=== PATIENT | female | born 1965 | race Hispanic/Latino ===

== ENCOUNTER 2018-08-02 18:52 | Inpatient (IN) | payer MEDICAID ==
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
[2018-08-02 20:38] LABS: BASO % 0.4 % (0.0-2.0); EOS % 0.1 % (0.0-4.0); HEMOGLOBIN 12.7 g/dL (11.0-16.0); LYMPH # 1.2 K/uL (1.0-4.3); LYMPH % 13.3 % (20.0-40.0); MEAN CELL VOLUME 78.7 fL (81.0-99.0); MEAN CORPUSCULAR HEMOGLOBIN 25.4 pg (27.0-31.0); MEAN CORPUSCULAR HGB CONC 32.3 g/dL (33.0-37.0); MEAN PLATELET VOLUME 8.9 fL (7.2-11.7); MONO # 1.1 K/uL (0.0-0.8); MONO % 12.4 % (0.0-10.0); NEUT # 6.4 K/uL (1.8-7.0); NEUT % 73.8 % (50.0-75.0); NRBC % 0.1 % (0.0-2.0); RBC 4.97 Mil/uL (3.80-5.20); RED CELL DISTRIBUTION WIDTH 13.9 % (11.5-14.5); WHITE BLOOD COUNT 8.7 K/uL (4.8-10.8)
[2018-08-02 20:57] LABS: ALB/GLOB RATIO 1.4 (1.0-2.1); ALBUMIN 4.4 g/dL (3.5-5.0); ALT/SGPT 43 U/L (9-52); AST/SGOT 48 U/L (14-36); BLOOD UREA NITROGEN 13 mg/dL (7-17); CALCIUM 9.4 mg/dl (8.6-10.4); GFR NON-AFRICAN AMERICAN > 60
[2018-08-02 22:56] LABS: SQUAMOUS EPITHIAL 35 /hpf (0-5); URINE BILIRUBIN NEGATIVE (NEGATIVE); URINE BLOOD 1+ (NEGATIVE); URINE CLARITY Hazy (Clear); URINE COLOR Yellow (YELLOW); URINE GLUCOSE (UA) NORMAL (Normal); URINE HYALINE CAST 0-2 /lpf (0-2); URINE LEUKOCYTE ESTERASE 3+ Leu/uL (Negative); URINE PROTEIN 2+ mg/dL (NEGATIVE); URINE UROBILINOGEN NORMAL mg/dL (0.2-1.0)
[2018-08-02 23:36] LABS: BARBITURATES, UR NEGATIVE (NEGATIVE); BENZODIAZEPINES, UR NEGATIVE (NEGATIVE); OPIATES, UR NEGATIVE (NEGATIVE); PHENCYCLIDINE, UR NEGATIVE (NEGATIVE)
--- NOTE | 2018-08-03 00:56 | PCM.BM ---
<Melisa Preston - Last Filed: 08/03/18 00:54> Treatment Plan Problems - Problems identified on initial assessmt Bipolar Date Initiated: 08/03/18 Time Initiated: 00:56 Assessment reference: NA Status: Active Anxiety Date Initiated: 08/03/18 Time Initiated: 01:06 Assessment reference: NA Status: Active - Milieu Protocol Maintain good personal hygiene: daily Encourage regular showers, daily Remind patient to perform daily oral care, daily Assist patient to perform ADL's Maintain personal safety: every shift Educate patient to report safety concerns to staff, every shift Monitor environment for contraband/sharps Medication safety: Monitor for expected outcome, potential side effects: every shift, Assess barriers to learning: every shift, Assess readiness for medication education: every shift <Eliz Michaud - Last Filed: 08/04/18 14:38> Family Contact Family involvement: Family/SO is involved Family contact: Family has been contacted by patient - Goals for Treatment Patient goals for treatment: "I do not need psychiatric treatment." Discharge/Continuing Care - Education Needs Education Needs: Patient Medication, Patient Diagnosis/Disease Process - Discharge Discharge Criteria: Free of agitation, Normal sleep pattern, Ability to care for self, Reduction of target symptoms Discharge to:: Home, With Family - Treatment Team Participation Discussed with Family/SO: No Was Patient/Family/SO present at Treatment Team Meeting: Yes
[2018-08-03] MEDS ORDERED: Pneumococcal 23-Valent Vaccine IM ONE (01:30)
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
[2018-08-04] MEDS ORDERED: Influenza Vaccine 60 MCG/0.5 ML SYR (3 yr & up) IM ONE (01:27)
--- NOTE | 2018-08-04 20:02 | PCM.PYCHPN ---
Psychiatric Progress Note - Psychiatric Progress Note Patient seen today, length of contact: 15 minutes Patient Chief Complaint: I have no problem, my father has dementia and he needs treatment. Problems Identified/Issues Discussed: Patient seen, chart reviewed, case discussed with the staff. Issues related to illness and treatment were discussed with the patient and staff. Reported compliant with treatment with no adverse affects. Tolerating treatment very well. Patient reported feeling better. Staff also reported that patient was less hyper. Calm and partially cooperative. Patient was still grandiose, demanding nurse and the social services director should be p resent as a witness during her evaluation. Her speech was less pressured. We will increase the dose of lithium to 300 mg 3 times a day. Awake, alert and oriented 3. No psychomotor activity, good eye contact, memory intact. Aftercare discussed with the patient. Denied any delusions, auditory or visual hallucinations, suicidal ideations or homicidal ideations at the time of evaluation. Medical Problems: None reported Diagnostic Results: Reviewed DSM 5 Symptoms Update: Some improvement for treatment, patient needs more time for stabilization. Medication Change: Yes (Dose of lithium increased to 300 mg 3 times a day) Medical Record Reviewed: Yes Mental Status Examination - Cognitive Function Orientation: Person, Place, Time Memory: Intact Attention: WNL Concentration: WNL Association: Loose Fund of Knowledge: WNL Decription of patient's judgement and insights: Poor - Mood Mood: Euphoric - Affect Affect: Other (Somewhat manic) - Speech Speech: Pressured (Less than before) - Formal Thought Process Formal Thought Process: Delusions, Loosening of associations, Flight of ideas - Suicidal Ideation Suicidal Ideation: No - Homicidal Ideation Homicidal Ideation: No Goal/Treatment Plan - Goal/Treatment Plan Need for Continued Stay: Remain at risks for inpatient hospitalization, Discharge may exacerbated symptoms, Severe functional impairment Progress Toward Problem(s) and Goals/Treatment Plan: Patient/staff/family education. Supportive therapy. We'll increase the dose of lithium to 300 mg 3 times a day. Continue rest of the treatment as before. Estimated Date of D/C: 08/13/18 - Smoking Cessation Smoking Cessation Initiated: No Reason for not providing: Patient does not smoke cigarettes
[2018-08-05] MEDS ORDERED: Influenza Vaccine 60 MCG/0.5 ML SYR (3 yr & up) IM ONE ×2 (10:00→10:45)
--- NOTE | 2018-08-05 17:57 | PCM.PYCHPN ---
Psychiatric Progress Note - Psychiatric Progress Note Patient seen today, length of contact: 15 minutes Patient Chief Complaint: I have no problem, my father has dementia and he needs treatment. Problems Identified/Issues Discussed: Patient seen, chart reviewed, case discussed with the staff. Issues related to illness and treatment were discussed with the patient and staff. Reported compliant with treatment with no adverse affects. Tolerating treatment very well. Patient reported feeling better. Staff also reported that patient was less hyper. Calm and partially cooperative. Patient was still grandiose, demanding nurse and the family welfare social work professor should be p resent as a witness during her evaluation. Her speech was less pressured. We will increase the dose of lithium to 300 mg 3 times a day. Awake, alert and oriented 3. No psychomotor activity, good eye contact, memory intact. Aftercare discussed with the patient. Denied any delusions, auditory or visual hallucinations, suicidal ideations or homicidal ideations at the time of evaluation. Medical Problems: None reported Diagnostic Results: Reviewed DSM 5 Symptoms Update: Some improvement with treatment Medication Change: Yes (Dose of lithium increased to 300 mg 3 times a day) Medical Record Reviewed: Yes Mental Status Examination - Cognitive Function Orientation: Person, Place, Time Memory: Intact Attention: WNL Concentration: WNL Association: Loose Fund of Knowledge: WNL Decription of patient's judgement and insights: POOR - Mood Mood: Euphoric - Affect Affect: Other (Manic) - Speech Speech: Pressured (Less than before) - Formal Thought Process Formal Thought Process: Delusions, Loosening of associations, Flight of ideas - Suicidal Ideation Suicidal Ideation: No - Homicidal Ideation Homicidal Ideation: No Goal/Treatment Plan - Goal/Treatment Plan Need for Continued Stay: Remain at risks for inpatient hospitalization, Discharge may exacerbated symptoms, Severe functional impairment Progress Toward Problem(s) and Goals/Treatment Plan: Patient/staff/family education. Supportive therapy. We will increase the dose of lithium to 300 mg 3 times a day. Continue rest of the treatment as before. Estimated Date of D/C: 08/13/18 - Smoking Cessation Smoking Cessation Initiated: No Reason for not providing: Patient doesn't smoke cigarettes.
--- NOTE | 2018-08-06 19:12 | PCM.PYCHPN ---
Psychiatric Progress Note - Psychiatric Progress Note Patient seen today, length of contact: 15 minutes Patient Chief Complaint: I have no problem, my father has dementia and he needs treatment. Problems Identified/Issues Discussed: Patient seen, chart reviewed, case discussed with the staff. Issues related to illness and treatment were discussed with the patient and staff. Reported compliant with treatment with no adverse affects. Tolerating treatment very well. Patient reported feeling better. Staff also reported that patient was less hyper. Calm and partially cooperative. Patient was still grandiose, demanding nurse and the social welfare clerk should be p resent as a witness during her evaluation. Her speech was less pressured. We will increase the dose of risperdal to 2mg BID. Awake, alert and oriented 3. No psychomotor activity, good eye contact, memory intact. Aftercare discussed with the patient. Denied any delusions, auditory or visual hallucinations, suicidal ideations or homicidal ideations at the time of evaluation. Medical Problems: None reported Diagnostic Results: Reviewed DSM 5 Symptoms Update: Some improvement with treatment. Medication Change: Yes (Dose of Risperdal increased to 2 mg twice a day) Medical Record Reviewed: Yes Mental Status Examination - Cognitive Function Orientation: Person, Place, Time Memory: Intact Attention: WNL Concentration: WNL Association: Loose Fund of Knowledge: WNL Decription of patient's judgement and insights: POOR - Mood Mood: Euphoric - Affect Affect: Other (Manic) - Speech Speech: Pressured (Less than before) - Formal Thought Process Formal Thought Process: Delusions, Loosening of associations, Flight of ideas - Suicidal Ideation Suicidal Ideation: No - Homicidal Ideation Homicidal Ideation: No Goal/Treatment Plan - Goal/Treatment Plan Need for Continued Stay: Remain at risks for inpatient hospitalization, Discharge may exacerbated symptoms, Severe functional impairment Progress Toward Problem(s) and Goals/Treatment Plan: Patient/staff/family education. Supportive therapy. Will increase the dose of Risperdal to 2 mg twice a day. We will also start Cogentin 1 mg twice daily. Continue rest of the treatment as before. Estimated Date of D/C: 08/13/18 - Smoking Cessation Smoking Cessation Initiated: No
[2018-08-08] MEDS ORDERED: Influenza Vaccine 60 MCG/0.5 ML SYR (3 yr & up) IM ONE (10:00)
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
[2018-08-09] MEDS ORDERED: Pneumococcal 23-Valent Vaccine IM ONE ×2 (11:00→11:42)
--- NOTE | 2018-08-09 13:38 | RAD ---
HISTORY: Involuntary commitment COMPARISON: No prior. TECHNIQUE: Chest PA and lateral FINDINGS: LINES AND TUBES: None. LUNG AND PLEURA: The lungs are well inflated and clear. No pleural effusion or pneumothorax. HEART AND MEDIASTINUM: The heart is not enlarged. The hilar and mediastinal contours are within normal limits. SKELETAL STRUCTURES: The bony structures are within normal limits for the patient's age. VISUALIZED UPPER ABDOMEN: Normal. OTHER FINDINGS: None. IMPRESSION: No active pulmonary disease.
--- NOTE | 2018-08-09 22:43 | PCM.PYCHPN ---
Psychiatric Progress Note - Psychiatric Progress Note Patient seen today, length of contact: 15 minutes Patient Chief Complaint: I am feeling jackeline Problems Identified/Issues Discussed: Patient seen and evaluated, chart reviewed and discussed with the nurse. She still reports irritability and agitation. Pt remained disorganized and internally preoccupied. She remained isolated and withdrawn, and confined to her room. Patient is compliant with medications and denies any side effects. Symptoms are improving but pt needs more time to stabilize. Support and psychoeducation given. Medication Change: Yes (Dose of Risperdal increased to 2 mg twice a day) Medical Record Reviewed: Yes Mental Status Examination - Cognitive Function Orientation: Person, Place, Time Memory: Intact Attention: WNL Concentration: WNL Association: Loose Fund of Knowledge: WNL - Mood Mood: Euphoric - Affect Affect: Other (Manic) - Speech Speech: Pressured (Less than before) - Formal Thought Process Formal Thought Process: Delusions, Loosening of associations, Flight of ideas - Suicidal Ideation Suicidal Ideation: No - Homicidal Ideation Homicidal Ideation: No Goal/Treatment Plan - Goal/Treatment Plan Need for Continued Stay: Remain at risks for inpatient hospitalization, Discharge may exacerbated symptoms, Severe functional impairment Progress Toward Problem(s) and Goals/Treatment Plan: Bipolar 1 disorder manic severe with psychotic features -CBT -Psychotherapy -Supportive therapy, group therapy, individual therapy -Atarax 25 mg PO Q6 prn -[place] 300 mg PO TID -Risperdal 2 mg PO BID -Cogentin 1 mg PO BID -Trazodone 50 mg PO QHS prn Estimated Date of D/C: 08/13/18 - Smoking Cessation Smoking Cessation Initiated: No
[2018-08-10 06:09] VITALS: BP 100/58; PULSE 61; RESP 16; TEMP 96.4; O2SAT 99
--- NOTE | 2018-08-11 11:55 | CARD ---
APPROVED REPORT Date of service: 08/09/2018 EKG Measurement Heart [id number] <Conclusion> Normal sinus rhythm Possible Left atrial enlargement Borderline ECG incomplete [id number]
--- NOTE | 2018-08-26 21:30 | PCM.PYCHPN ---
Psychiatric Progress Note - Psychiatric Progress Note Patient seen today, length of contact: 15 minutes Patient Chief Complaint: I am feeling jackeline Problems Identified/Issues Discussed: Patient seen and evaluated, chart reviewed and discussed with the nurse. She still reports irritability and agitation. Pt remained disorganized and internally preoccupied. She remained isolated and withdrawn, and confined to her room. Patient is compliant with medications and denies any side effects. Symptoms are improving but pt needs more time to stabilize. Support and psychoeducation given. Medication Change: Yes (Dose of Risperdal increased to 2 mg twice a day) Medical Record Reviewed: Yes Mental Status Examination - Cognitive Function Orientation: Person, Place, Time Memory: Intact Attention: WNL Concentration: WNL Association: Loose Fund of Knowledge: WNL - Mood Mood: Euphoric - Affect Affect: Other (Manic) - Speech Speech: Pressured (Less than before) - Formal Thought Process Formal Thought Process: Delusions, Loosening of associations, Flight of ideas - Suicidal Ideation Suicidal Ideation: No - Homicidal Ideation Homicidal Ideation: No Goal/Treatment Plan - Goal/Treatment Plan Need for Continued Stay: Remain at risks for inpatient hospitalization, Discharge may exacerbated symptoms, Severe functional impairment Progress Toward Problem(s) and Goals/Treatment Plan: Bipolar 1 disorder manic severe with psychotic features -CBT -Psychotherapy -Supportive therapy, group therapy, individual therapy -Atarax 25 mg PO Q6 prn -[place] 300 mg PO TID -Risperdal 2 mg PO BID -Cogentin 1 mg PO BID -Trazodone 50 mg PO QHS prn Estimated Date of D/C: 08/13/18
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
== END 2018-08-10 13:19 | DRG 753 ==
LOC: C.ER 18:52 → C.5E 23:55
PROC: GZHZZZZ Group Psychotherapy (ICD-10-PCS; principal; 2018-08-02)
PROC: GZ56ZZZ Individual Psychotherapy, Supportive (ICD-10-PCS; 2018-08-02)
DX: F31.2 Bipolar disorder, current episode manic severe with psychotic features (principal)